=== PATIENT | male | born 1975 | race Caucasian/White ===

== ENCOUNTER 2021-08-01 17:40 | Inpatient (IN) | payer MEDICARE, OTHER ==
[~2021-08-01] VITALS: Ht 182.9 cm; Wt 84.5 kg
[2021-08-01] MEDS ORDERED: DEXAMETHASONE SOD PHOSPHATE 10 MG/ML VIAL IV ONE (18:00)
[2021-08-01] MEDS ORDERED: DEXAMETHASONE SOD PHOSPHATE 10 MG/ML VIAL ONE (18:29)
[2021-08-01 18:51] LABS: CALCIUM, SERUM 8.1 mg/dL (8.5-10.1); CARBON DIOXIDE 25 mmol/L (21-32); CHLORIDE 90 mmol/L (98-107); GLUCOSE 116 mg/dL (74-106); POTASSIUM 4.6 mmol/L (3.5-5.1); SODIUM SERUM 126 mmol/L (136-145); UREA NITROGEN, BLOOD 25 mg/dL (7-18)
[2021-08-01 18:57] LABS: ALANINE AMINOTRANSFERASE 13 U/L (12-78); ALBUMIN 3.4 g/dL (3.4-5.0); ALKALINE PHOSPHATASE 48 U/L (46-116); ASPARTATE AMINOTRANSFERASE 11 U/L (15-37); BILIRUBIN,TOTAL 0.3 mg/dL (0.2-1.0); TOTAL PROTEIN, SERUM 7.2 g/dL (6.4-8.2)
[2021-08-01] MEDS ORDERED: IV NS 0.9% 1,000 ML BAG IV STA (19:09)
[2021-08-01] MEDS ORDERED: CEFEPIME 1 GM VIAL ONE (19:23)
[2021-08-01] MEDS ORDERED: VANCOMYCIN 1 GM VIAL ONE (19:24)
[2021-08-01] MEDS ORDERED: VANCOMYCIN 1 GM in IV D5W 250 ML IV ONE (19:30)
[2021-08-01] MEDS ORDERED: CEFEPIME 1 GM in IV D5W 50 ML IV ONE (19:30)
[2021-08-01] MEDS ORDERED: ACETAMINOPHEN 650 MG/SUPP.RECT RC ONE (19:30)
[2021-08-01 20:04] LABS: BASOPHILS % (AUTO) 0.2 % (0.0-2.0); EOSINOPHILS % (AUTO) 0.1 % (0.0-6.0); HEMATOCRIT 36 % (39-51); HEMOGLOBIN 11.8 g/dL (13.5-17.5); LYMPHOCYTES # (AUTO) 1.6 K/uL (0.8-4.8); LYMPHOCYTES % (AUTO) 15.7 % (20.0-44.0); MEAN CORPUSCULAR HGB CONC 33 g/dl (31.0-36.0); MEAN CORPUSCULAR VOLUME 81 fL (80-96); MONOCYTES # (AUTO) 0.6 K/uL (0.1-1.30); MONOCYTES % (AUTO) 5.6 % (2.0-12.0); NEUTROPHILS # (AUTO) 8.2 K/uL (1.8-8.9); NEUTROPHILS % (AUTO) 78.4 % (43.0-81.0); PLATELET COUNT (AUTO) 211 K/uL (150-450); RED BLOOD CELL COUNT(AUTO) 4.44 MIL/uL (4.5-6.0); WHITE BLOOD COUNT (AUTO) 10.4 K/uL (4.3-11.0)
[2021-08-01 21:44] LABS: BILIRUBIN,URINE NEGATIVE (NEGATIVE); COLOR,URINE YELLOW (YELLOW); LEUKOCYTE ESTERASE ,URINE NEGATIVE (NEGATIVE); NITRITE, URINE NEGATIVE (NEGATIVE); PROTEIN,URINE NEGATIVE (NEGATIVE); UGLUCOSE NEGATIVE (NEGATIVE); UROBILINOGEN,URINE 0.2 EU/dL (0.2)
[2021-08-01 21:46] LABS: BACTERIA,URINE N0 /HPF (None Seen); RBC,URINE 0-2 /HPF (0-2); SQUAMOUS EPITHELIAL CELL,UR 0-2 /HPF (None Seen); WBC,URINE 0-2 /HPF (0-3)
[2021-08-01] MEDS ORDERED: Z GUARD REMEDY 4 OZ OINT TP PRN (22:30)
[2021-08-01] MEDS ORDERED: ACETAMINOPHEN 325 MG TABLET PO PRN (22:30)
[2021-08-01] MEDS ORDERED: MAGNESIUM HYDROXIDE 30 ML UDC PO PRN (22:30)
[2021-08-01] MEDS ORDERED: ONDANSETRON HCL/PF 4 MG/2 ML VIAL IVP PRN (22:30)
[2021-08-01] MEDS ORDERED: MAG HYDROX/AL HYDROX/SIMETH 30 ML UDC PO PRN (22:30)
[2021-08-02] VITALS: BP 129/76
[2021-08-02] MEDS: ENOXAPARIN SODIUM 40 MG/0.4 ML DISP.SYRIN SQ SCH ×3 (00:14→21:41)
[2021-08-02] MEDS: IV NS 0.9% 1,000 ML IV PRN ×2 (03:36→17:27)
[2021-08-02 04:00] VITALS: BP 119/86
[2021-08-02 07:06] LABS: HEMATOCRIT 32 % (39-51); HEMOGLOBIN 10.5 g/dL (13.5-17.5); LYMPHOCYTES # (AUTO) 0.7 K/uL (0.8-4.8); LYMPHOCYTES % (AUTO) 5.3 % (20.0-44.0); MEAN CORPUSCULAR HGB CONC 33 g/dl (31.0-36.0); MEAN CORPUSCULAR VOLUME 80 fL (80-96); MONOCYTES # (AUTO) 0.5 K/uL (0.1-1.30); MONOCYTES % (AUTO) 3.8 % (2.0-12.0); NEUTROPHILS % (AUTO) 90.9 % (43.0-81.0); PLATELET COUNT (AUTO) 172 K/uL (150-450); RED BLOOD CELL COUNT(AUTO) 3.97 MIL/uL (4.5-6.0); WHITE BLOOD COUNT (AUTO) 14.3 K/uL (4.3-11.0)
[2021-08-02 07:55] LABS: CALCIUM, SERUM 8.1 mg/dL (8.5-10.1); CREATININE 0.8 mg/dL (0.6-1.3); MAGNESIUM 1.9 mg/dL (1.8-2.4); PHOSPHORUS 3.6 mg/dL (2.5-4.9); POTASSIUM 4.2 mmol/L (3.5-5.1)
[2021-08-02] MEDS: DEXAMETHASONE SOD PHOSPHATE 10 MG/ML VIAL IV SCH (08:11)
[2021-08-02 08:31] VITALS: BP 119/71
[2021-08-02] MEDS ORDERED: CEFEPIME 1 GM VIAL IM SCH (09:00)
[2021-08-02] MEDS: CEFEPIME 2 GM in IV D5W 100 ML IV SCH ×2 (09:12→17:15)
[2021-08-02 12:32] VITALS: BP 107/65
[2021-08-02 16:00] VITALS: BP 127/72
[2021-08-02 20:00] VITALS: BP 123/68
[2021-08-03] VITALS: BP 103/49
[2021-08-03] MEDS: CEFEPIME 2 GM in IV D5W 100 ML IV SCH ×3 (02:51→17:12)
[2021-08-03 04:00] VITALS: BP 105/44
[2021-08-03 07:06] LABS: BASOPHILS % (AUTO) 0.1 % (0.0-2.0); EOSINOPHILS % (AUTO) 0.1 % (0.0-6.0); HEMATOCRIT 29 % (39-51); HEMOGLOBIN 9.5 g/dL (13.5-17.5); LYMPHOCYTES # (AUTO) 1.1 K/uL (0.8-4.8); LYMPHOCYTES % (AUTO) 12.5 % (20.0-44.0); MEAN CORPUSCULAR HGB CONC 33 g/dl (31.0-36.0); MEAN CORPUSCULAR VOLUME 81 fL (80-96); MONOCYTES # (AUTO) 0.9 K/uL (0.1-1.30); MONOCYTES % (AUTO) 10.2 % (2.0-12.0); NEUTROPHILS # (AUTO) 7.1 K/uL (1.8-8.9); NEUTROPHILS % (AUTO) 77.1 % (43.0-81.0); PLATELET COUNT (AUTO) 180 K/uL (150-450); RED BLOOD CELL COUNT(AUTO) 3.58 MIL/uL (4.5-6.0); WHITE BLOOD COUNT (AUTO) 9.2 K/uL (4.3-11.0)
[2021-08-03 07:12] LABS: CALCIUM, SERUM 7.9 mg/dL (8.5-10.1); CREATININE 0.7 mg/dL (0.6-1.3); MAGNESIUM 2.2 mg/dL (1.8-2.4); PHOSPHORUS 3.2 mg/dL (2.5-4.9)
[2021-08-03 07:27] LABS: THYROID STIMULATING HORMONE 3.603 uIU/mL (0.358-3.74); URIC ACID 2.5 mg/dL (2.6-7.2)
[2021-08-03 08:00] VITALS: BP 119/71
[2021-08-03] MEDS: ENOXAPARIN SODIUM 40 MG/0.4 ML DISP.SYRIN SQ SCH ×2 (08:22→21:06)
[2021-08-03] MEDS: DEXAMETHASONE SOD PHOSPHATE 10 MG/ML VIAL IV SCH (08:25)
[2021-08-03 12:00] VITALS: BP 119/71
[2021-08-03 16:06] VITALS: BP 119/71
[2021-08-03] MEDS ORDERED: ACET-868 PO (16:37)
[2021-08-03] MEDS ORDERED: QUET100T PO (16:37)
[2021-08-03] MEDS ORDERED: ONDA-97 PO (16:37)
[2021-08-03] MEDS ORDERED: DOCU-141 PO (16:37)
[2021-08-03] MEDS ORDERED: LORA-259 PO (16:37)
[2021-08-03] MEDS ORDERED: BISA10SU11 RC (16:37)
[2021-08-03] MEDS ORDERED: GABA-536 PO (16:37)
[2021-08-03] MEDS ORDERED: DIVA500T2 PO (16:37)
[2021-08-03] MEDS ORDERED: OMEP40CA21 PO (16:37)
[2021-08-03] MEDS ORDERED: BUSP10TA35 PO (16:37)
[2021-08-03] MEDS ORDERED: LORA2VIA11 IM (16:37)
[2021-08-03] MEDS ORDERED: MAG30ORA PO (16:37)
[2021-08-03] MEDS: IV NS 0.9% 1,000 ML IV PRN (17:14)
[2021-08-03 20:00] VITALS: BP 127/80
[2021-08-04] VITALS: BP 136/97
[2021-08-04] MEDS: CEFEPIME 2 GM in IV D5W 100 ML IV SCH (01:14)
[2021-08-04 04:00] VITALS: BP 116/74
[2021-08-04 07:50] LABS: ABG BASE EXCESS 5.8 mmol/L; ABG OXYGEN SATURATION 95.8 % (92.0-98.5); ABG PCO2 41.9 mmHg (35.0-45.0); ABG PH 7.472 (7.350-7.450); ABG PO2 80.7 mmHg (75.0-100.0); AaDO2 18.9 mmHg; COHb 0.3 % (0.5-1.5); O2Hb 95.5 % (94.0-97.0); SITE, ABG Right Radial; VENT MODE, BG room air
[2021-08-04 08:00] VITALS: BP 113/72
[2021-08-04] MEDS: DEXAMETHASONE SOD PHOSPHATE 10 MG/ML VIAL IV SCH (08:36)
[2021-08-04] MEDS: ENOXAPARIN SODIUM 40 MG/0.4 ML DISP.SYRIN SQ SCH ×2 (08:37→21:07)
[2021-08-04] MEDS ORDERED: METH4TAB3 PO (11:02)
[2021-08-04 12:00] VITALS: BP 113/72
[2021-08-04 16:00] VITALS: BP 110/86
[2021-08-04 20:00] VITALS: BP 144/81
[2021-08-05 04:00] VITALS: BP 144/99
[2021-08-05 08:00] VITALS: BP 149/88
[2021-08-05] MEDS: ENOXAPARIN SODIUM 40 MG/0.4 ML DISP.SYRIN SQ SCH ×2 (08:42→21:05)
[2021-08-05 14:00] VITALS: BP 133/63
[2021-08-05 16:00] VITALS: BP 132/66
[2021-08-05 20:00] VITALS: BP 119/86
[2021-08-05] MEDS ORDERED: GUAIFENESIN/CODEINE 10 ML UDC PO PRN (21:00)
[2021-08-06] VITALS: BP 124/72
[2021-08-06 04:00] VITALS: BP 112/73
[2021-08-06 08:00] VITALS: BP 111/86
[2021-08-06] MEDS: ENOXAPARIN SODIUM 40 MG/0.4 ML DISP.SYRIN SQ SCH (09:36)
[2021-08-06] MEDS ORDERED: APIX2.5T PO (10:15)
== END 2021-08-06 16:22 | DRG 177 ==
LOC: ER 17:47 → TELE1 22:05 → MEDSG1 08-04 11:53 → MEDSG2 08-05 11:03
PROVIDERS: ADMIT Internal Medicine; ATTEND Internal Medicine
DX: U07.1 COVID-19 (principal); G93.41 Metabolic encephalopathy; J12.82 Pneumonia due to coronavirus disease 2019; J96.01 Acute respiratory failure with hypoxia; N17.0 Acute kidney failure with tubular necrosis; G10 Huntington's disease; E87.2 Acidosis; E22.2 Syndrome of inappropriate secretion of antidiuretic hormone; E86.1 Hypovolemia; D64.9 Anemia, unspecified
CPT/HCPCS: 36415; 36600; 71045-TC; 80048-TC; 80053-TC; 81001; 82803-TC; 83605-TC; 83735-TC; 84100-TC; 84300-TC; 84443-TC; 84484-TC; 84550-TC; 85025-TC; 85378-TC; 86140-TC; 87040-TC; 87081-TC; 87086-TC; 93970-TC; C9803; G0378; J0692; J1100; J1650; J3370; J7030; J7040; J7060; U0003